=== PATIENT | female | born 1945 | race Caucasian/White ===

== ENCOUNTER 2017-01-26 13:26 | Emergency (ER) | payer BC ==
[~2017-01-26] VITALS: Ht 160 cm; Wt 78.0 kg
[2017-01-26] MEDS ORDERED: ACETAMINOPHEN 325MG TABLET PO STA (15:15)
[2017-01-26 15:36] LABS: BASOPHILS % 0.5 % (0.0-2.0); EOSINOPHILS % 2.2 % (0.0-5.0); HEMOGLOBIN. 12.5 g/dL (12.0-16.0); LYMPHOCYTES % 26.8 % (20.0-50.0); MEAN CORPUSCULAR HEMOGLOBIN 31.4 pg (28.0-32.0); MEAN CORPUSCULAR VOLUME 92.7 fL (81.0-99.0); MEAN PLATELET VOLUME 7.3 fl (7.4-10.4); MONOCYTES % 6.2 % (2.0-8.0); NEUTROPHILS % 64.3 % (40.0-76.0); PLATELET 249 x1000/uL (130-400); RED BLOOD CELL COUNT 3.99 mill/uL (4.2-5.4); RED CELL DISTRIBUTION WIDTH 13.2 % (11.6-14.6)
[2017-01-26 15:37] LABS: PROTHROMBIN TIME 10.8 sec (9.4-11.6)
[2017-01-26 15:39] LABS: CHLORIDE 108 mEq/L (98-107)
[2017-01-26 15:46] LABS: CARBON DIOXIDE 27 mEq/L (21-32)
[2017-01-26 17:13] VITALS: BP 155/51
== END 2017-01-26 17:15 | disposition home or self-care (01) ==
LOC: ER 13:26
DX: S00.83XA Contusion of other part of head, initial encounter (principal); E11.9 Type 2 diabetes mellitus without complications; R42 Dizziness and giddiness; H53.8 Other visual disturbances; W01.0XXA Fall on same level from slipping, tripping and stumbling without subsequent striking against object, initial encounter; Y93.89 Activity, other specified; Y92.89 Other specified places as the place of occurrence of the external cause; Y99.8 Other external cause status
CPT/HCPCS: 36415; 70450; 80053; 85025; 85610; 99285; J7030; Z7610

== ENCOUNTER 2018-08-10 11:28 | Emergency (ER) | payer BC ==
[~2018-08-10] VITALS: Ht 160 cm; Wt 91.0 kg
[~2018-08-10 11:28] MED LIST: ASPI-1158 MT; LINA5TAB PO; LISI10TA5 PO
[2018-08-10] MEDS ORDERED: KETOROLAC 60MG/2ML VIAL IM ONE (14:15)
[2018-08-10 15:10] VITALS: BP 174/76
== END 2018-08-10 15:15 | disposition home or self-care (01) ==
LOC: ER 11:28
DX: M25.561 Pain in right knee (principal); E11.9 Type 2 diabetes mellitus without complications; I10 Essential (primary) hypertension; Z79.899 Other long term (current) drug therapy
CPT/HCPCS: 73562; 96372; 99283; J1885

== ENCOUNTER 2020-09-05 22:08 | Emergency (ER) | payer BC ==
[~2020-09-05] VITALS: Ht 165.1 cm; Wt 90.0 kg
[~2020-09-05 22:08] MED LIST changes: -ASPI-1158 MT; +ASPI-1406 MT; +LISI10TA26 PO; -LISI10TA5 PO
[2020-09-05] MEDS ORDERED: KETOROLAC 60MG/2ML VIAL IM ONE (23:45)
[2020-09-06] MEDS ORDERED: GABA300C MT (02:00)
[2020-09-06] MEDS ORDERED: IBUP-2029 MT (02:00)
[2020-09-06 02:10] VITALS: BP 160/68
== END 2020-09-06 02:15 | disposition home or self-care (01) ==
LOC: ER 22:08
DX: M47.896 Other spondylosis, lumbar region (principal); I10 Essential (primary) hypertension; E11.9 Type 2 diabetes mellitus without complications
CPT/HCPCS: 72100; 73502; 96372; 99284; J1885

== ENCOUNTER 2020-09-18 11:28 | Emergency (ER) | payer BC ==
[~2020-09-18] VITALS: Ht 160 cm; Wt 88.0 kg
[~2020-09-18 11:28] MED LIST changes: +GABA300C MT; +IBUP-2029 MT
[2020-09-18] MEDS ORDERED: LIDOCAINE 5% PATCH TOP SCH (12:15)
[2020-09-18] MEDS ORDERED: ACETAMINOPHEN 325MG TABLET PO ONE (12:15)
[2020-09-18] MEDS ORDERED: GABAPENTIN 300MG CAPSULE PO ONE (12:15)
[2020-09-18] MEDS ORDERED: LIDO1ADH16 TP (14:33)
[2020-09-18] MEDS ORDERED: GABA-532 MT (14:33)
[2020-09-18] MEDS ORDERED: TOPUD MT (14:33)
[2020-09-18 14:41] VITALS: BP 130/78
== END 2020-09-18 14:41 | disposition home or self-care (01) ==
LOC: ER 11:28
DX: M51.36 Other intervertebral disc degeneration, lumbar region (principal); M54.42 Lumbago with sciatica, left side; I10 Essential (primary) hypertension; E11.9 Type 2 diabetes mellitus without complications; Z79.899 Other long term (current) drug therapy
CPT/HCPCS: 72131; 82962; 99284

== ENCOUNTER 2021-07-04 08:36 | Emergency (ER) | payer BC ==
[~2021-07-04] VITALS: Ht 157.5 cm; Wt 89.0 kg
[~2021-07-04 08:36] MED LIST changes: +GABA-532 MT; +LIDO1ADH16 TP; +TOPUD MT
[2021-07-04] MEDS ORDERED: KETOROLAC 30MG/ML VIAL IV STA (09:05)
[2021-07-04] MEDS ORDERED: SODIUM CHLORIDE 0.9% 1,000 ML IV ONE (09:15)
[2021-07-04] MEDS ORDERED: METOCLOPRAMIDE HCL 10MG/2ML VIAL IV ONE (09:15)
[2021-07-04 09:21] LABS: CLARITY URINE CLOUDY (CLEAR); COLOR URINE YELLOW (YELLOW); KETONES URINE NEGATIVE (NEGATIVE); LEUKOCYTE ESTERASE URINE 3+ (NEGATIVE); NITRITE URINE POSITIVE (NEGATIVE); OCCULT BLOOD URINE TRACE (NEGATIVE); PROTEIN URINE 2+ (NEGATIVE); SPECIFIC GRAVITY URINE 1.016 (1.005-1.030); UROBILINOGEN URINE 0.2 E.U./dL (0.2-1.0)
[2021-07-04 10:01] LABS: CHLORIDE 110 mEq/L (98-107)
[2021-07-04 10:07] LABS: BASOPHILS % 0.4 % (0.0-2.0); EOSINOPHILS % 2.4 % (0.0-5.0); HEMATOCRIT. 37.3 % (36.0-48.0); HEMOGLOBIN. 12.6 g/dL (12.0-16.0); LYMPHOCYTES % 30.9 % (20.0-50.0); MEAN CORPUSCULAR HEMOGLOBIN 31.1 pg (28.0-32.0); MEAN CORPUSCULAR VOLUME 92.3 fL (81.0-99.0); MEAN PLATELET VOLUME 7.6 fl (7.4-10.4); MONOCYTES % 6.2 % (2.0-8.0); NEUTROPHILS % 60.1 % (40.0-76.0); PLATELET 248 x1000/uL (130-400); RED BLOOD CELL COUNT 4.04 mill/uL (4.2-5.4); RED CELL DISTRIBUTION WIDTH 13.7 % (11.6-14.6)
[2021-07-04] MEDS ORDERED: METO-293 PO (10:43)
[2021-07-04] MEDS ORDERED: NITR100C PO (10:43)
[2021-07-04] MEDS ORDERED: TOPUD PO (10:43)
[2021-07-04 11:20] VITALS: BP 159/71
== END 2021-07-04 11:32 | disposition home or self-care (01) ==
LOC: ER 08:36
DX: R51.9 Headache, unspecified (principal); N39.0 Urinary tract infection, site not specified; I10 Essential (primary) hypertension; E86.0 Dehydration; E11.9 Type 2 diabetes mellitus without complications
CPT/HCPCS: 36415; 71045; 80053; 81003; 85025; 87077; 87086; 87186; 93005; 96361; 96374; 96375; 99285; J1885; J2765; J7030